=== PATIENT | male | born 1955 | race Caucasian/White ===

== ENCOUNTER 2019-01-06 18:02 | Inpatient (IN) | payer BC, MEDICAID ==
[~2019-01-06] VITALS: Ht 172.7 cm; Wt 52.9 kg
[~2019-01-06 18:02] MED LIST: AMLODIPINE; BUSPAR; CLOP75TA PO; FAMO20TA7 PO; OMEPRAZOLE; OMNIPAQUE 350 MG/ML, 150 ML BOTTLE ONE; STATIN
[2019-01-06] MEDS ORDERED: SODIUM CHLORIDE FLUSH 10ML SYR IVF ONE (18:30)
[2019-01-06] MEDS ORDERED: PLEASE ENTER HEIGHT AND WEIGHT MC SCH (18:30)
--- NOTE | 2019-01-06 19:01 | NUR ---
Assumed care of patient. Seen at [facility]. C/O LLE pain x 5 days. Hx bilat femoral stents placed two years ago. Ran out of Plavix last week. LLE cool to the touch and absent pulse. US from [place] showed severe occulsion of LLE. Patient drinks 1/2-1 pint of liquor per day. Placed on NIBP, pulse ox and residential monitor. Tachycardic. Family at bedside. Will continue to monitor.
[2019-01-06 19:06] LABS: BASOPHILS # (AUTO) 0.04 x10^3/uL (0-0.1); BASOPHILS % (AUTO) 0 % (0-1); EOSINOPHILS % (AUTO) 0 % (1-7); LYMPHOCYTES # (AUTO) 2.26 x10^3/uL (1-3.4); LYMPHOCYTES % (AUTO) 13 % (22-44); MD NO; MEAN CORPUSCULAR HEMOGLOBIN 37.6 pg (27.5-34.5); MEAN CORPUSCULAR HGB CONC 34.4 g/dL (33.2-36.2); MEAN CORPUSCULAR VOLUME 109.4 fL (81-97); MEAN PLATELET VOLUME 9.3 fL (7.4-10.4); MONOCYTES # (AUTO) 0.71 x10^3/uL (0.2-0.8); MONOCYTES % (AUTO) 4 % (2-9); NEUTROPHILS # (AUTO) 13.85 x10^3/uL (1.8-6.8); NEUTROPHILS % (AUTO) 82 % (42-75); PLATELET COUNT 173 x10^3/uL (130-400); RED BLOOD COUNT 4.22 x10^6/uL (4.38-5.82); RED CELL DISTRIBUTION WIDTH 16.3 % (9.4-14.8)
[2019-01-06 19:20] LABS: ALBUMIN 3.5 g/dL (3.4-5.0); ANION GAP 7 mmol/L (5-15); CALCIUM 9.9 mg/dL (8.5-10.1); CHLORIDE 97 mmol/L (98-107)
[2019-01-06] MEDS ORDERED: ATOR40TA78 PO (19:32)
[2019-01-06] MEDS ORDERED: RANI150T4 PO (19:32)
[2019-01-06] MEDS ORDERED: AMLO-150 PO (19:32)
[2019-01-06] MEDS ORDERED: PANT40TA5 PO (19:32)
--- NOTE | 2019-01-06 19:52 | NUR ---
Resting in [facility]. Provided with blankets.
[2019-01-06] MEDS ORDERED: HEPARIN 5,000 UNITS/ML, 1ML IV ONE (20:00)
[2019-01-06 20:15] LABS: INTERNATIONAL NORMALIZED RATIO 0.96 (0.93-1.1); PROTHROMBIN TIME 10.1 Seconds (9.6-11.5)
[2019-01-06] MEDS ORDERED: HEPARIN 5,000 UNITS/ML, 1ML ONE (20:16)
[2019-01-06] MEDS ORDERED: HEPARIN 25,000 UNITS/500ML PMX 500 ML ONE (20:16)
[2019-01-06] MEDS: HEPARIN 25,000 UNITS/500ML PMX 500 ML IV PRN (20:24)
--- NOTE | 2019-01-06 20:27 | NUR ---
Heparin hung. Remains tachycardic. NAD.
[2019-01-06] MEDS ORDERED: ONDANSETRON 2MG/ML, 2ML IVPush PRN (21:00)
[2019-01-06] MEDS ORDERED: MORPHINE SULFATE 4 MG/ML, 1ML IVPush PRN (21:00)
--- NOTE | 2019-01-06 21:40 | NUR ---
Report to ANDREWS Sandhu.
[2019-01-06] MEDS: SODIUM CHLORIDE 0.9% 1,000 ML IV SCH (21:41)
[2019-01-06] MEDS ORDERED: LORazepam 1MG TABLET PO PRN (22:00)
[2019-01-06 22:11] VITALS: BP 154/101
[2019-01-06] MEDS: POTASSIUM CHLORIDE 20 MEQ, MAGNESIUM SULFATE 1 GM, MVI ADULT 10 ML, THIAMINE 200 MG, FO... IV SCH (23:02)
[2019-01-06 23:42] LABS: FOLATE LEVEL 2.1 ng/mL (3.1-17.5)
[2019-01-07 02:53] VITALS: BP 127/84
[2019-01-07 03:19] LABS: MEAN CORPUSCULAR HEMOGLOBIN 37.6 pg (27.5-34.5); MEAN CORPUSCULAR HGB CONC 34.7 g/dL (33.2-36.2); MEAN CORPUSCULAR VOLUME 108.4 fL (81-97); MEAN PLATELET VOLUME 9.9 fL (7.4-10.4); PLATELET COUNT 159 x10^3/uL (130-400); RED BLOOD COUNT 3.93 x10^6/uL (4.38-5.82); RED CELL DISTRIBUTION WIDTH 16.5 % (9.4-14.8)
[2019-01-07 03:30] LABS: ALBUMIN 3.1 g/dL (3.4-5.0); ANION GAP 9 mmol/L (5-15); CALCIUM 9.1 mg/dL (8.5-10.1); CHLORIDE 99 mmol/L (98-107)
[2019-01-07 03:33] LABS: ALANINE AMINOTRANSFERASE 35 U/L (12-78); ALKALINE PHOSPHATASE 96 U/L (45-117); BILIRUBIN,TOTAL 1.5 mg/dL (0.2-1.0); CREATININE 0.57 mg/dL (0.7-1.3); TOTAL PROTEIN 6.7 g/dL (6.4-8.2)
[2019-01-07 03:43] LABS: BASOPHILS # (AUTO) 0.04 x10^3/uL (0-0.1); BASOPHILS % (AUTO) 0 % (0-1); EOSINOPHILS # (AUTO) 0.01 x10^3/uL (0-0.4); EOSINOPHILS % (AUTO) 0 % (1-7); LYMPHOCYTES # (AUTO) 1.94 x10^3/uL (1-3.4); LYMPHOCYTES % (AUTO) 12 % (22-44); MD SCAN; MONOCYTES # (AUTO) 1.15 x10^3/uL (0.2-0.8); MONOCYTES % (AUTO) 7 % (2-9); NEUTROPHILS # (AUTO) 13.65 x10^3/uL (1.8-6.8); NEUTROPHILS % (AUTO) 81 % (42-75)
[2019-01-07] MEDS: HEPARIN 5,000 UNITS/ML, 1ML IV PRN ×3 (03:47→18:48)
[2019-01-07] MEDS: METOPROLOL TARTRATE 25 MG TABLET PO SCH ×2 (05:18→18:59)
[2019-01-07 07:20] VITALS: BP 110/70
[2019-01-07] MEDS: CLOPIDOGREL 75 MG TABLET PO SCH (11:07)
[2019-01-07] MEDS: AMLODIPINE 5 MG TABLET PO SCH (11:07)
[2019-01-07] MEDS: PANTOPROZOLE 40MG TABLET PO SCH (11:07)
[2019-01-07] MEDS: SODIUM CHLORIDE 0.9% 1,000 ML IV SCH (11:08)
[2019-01-07] MEDS: NICOTINE 21 MG/24 HR PATCH.TD24 TD SCH (12:21)
[2019-01-07 13:02] LABS: MICROSCOPIC INDICATED
[2019-01-07 13:03] LABS: CULTURE INDICATED? YES
[2019-01-07] MEDS ORDERED: CEFTRIAXONE PMX 1GM/50ML 50 ML IV SCH (13:30)
[2019-01-07] MEDS ORDERED: ACETAMINOPHEN 325 MG TABLET PO PRN (13:30)
[2019-01-07 14:03] VITALS: BP 124/79
[2019-01-07] MEDS: CEFTRIAXONE PMX 1GM/50ML 50 ML IV SCH ×2 (18:48→19:21)
[2019-01-07 20:40] VITALS: BP 105/69
[2019-01-07] MEDS ORDERED: ATORVASTATIN 40 MG TABLET PO SCH (21:00)
[2019-01-08] MEDS: SODIUM CHLORIDE 0.9% 1,000 ML IV SCH ×2 (00:21→13:53)
[2019-01-08] MEDS: POTASSIUM CHLORIDE 20 MEQ, MAGNESIUM SULFATE 1 GM, MVI ADULT 10 ML, THIAMINE 200 MG, FO... IV SCH (00:35)
[2019-01-08] MEDS: HEPARIN 25,000 UNITS/500ML PMX 500 ML IV PRN ×2 (01:04→01:36)
[2019-01-08] MEDS: HEPARIN 5,000 UNITS/ML, 1ML IV PRN ×2 (01:36→06:21)
[2019-01-08 02:27] VITALS: BP 102/68
[2019-01-08 05:15] LABS: ALANINE AMINOTRANSFERASE 30 U/L (12-78); ALBUMIN 2.6 g/dL (3.4-5.0); ANION GAP 7 mmol/L (5-15); CALCIUM 8.5 mg/dL (8.5-10.1); CHLORIDE 102 mmol/L (98-107); CREATININE 0.54 mg/dL (0.7-1.3)
[2019-01-08 05:17] LABS: ALKALINE PHOSPHATASE 87 U/L (45-117); BASOPHILS # (AUTO) 0.01 x10^3/uL (0-0.1); BASOPHILS % (AUTO) 0 % (0-1); BILIRUBIN,TOTAL 0.6 mg/dL (0.2-1.0); EOSINOPHILS # (AUTO) 0.04 x10^3/uL (0-0.4); EOSINOPHILS % (AUTO) 0 % (1-7); LYMPHOCYTES # (AUTO) 3.03 x10^3/uL (1-3.4); LYMPHOCYTES % (AUTO) 18 % (22-44); MD NO; MEAN CORPUSCULAR HEMOGLOBIN 37.2 pg (27.5-34.5); MEAN CORPUSCULAR VOLUME 109.3 fL (81-97); MEAN PLATELET VOLUME 9.6 fL (7.4-10.4); MONOCYTES # (AUTO) 1.29 x10^3/uL (0.2-0.8); MONOCYTES % (AUTO) 8 % (2-9); NEUTROPHILS % (AUTO) 75 % (42-75); PLATELET COUNT 166 x10^3/uL (130-400); RED BLOOD COUNT 3.64 x10^6/uL (4.38-5.82); RED CELL DISTRIBUTION WIDTH 16.1 % (9.4-14.8); TOTAL PROTEIN 6.1 g/dL (6.4-8.2)
[2019-01-08] MEDS: METOPROLOL TARTRATE 25 MG TABLET PO SCH ×2 (05:18→17:58)
[2019-01-08] MEDS ORDERED: BUPIVACAINE/PF 0.5% ONE (07:32)
[2019-01-08] MEDS ORDERED: THROMBIN 20,000 UNIT VIAL TP ONE (07:33)
[2019-01-08] MEDS ORDERED: PAPAVERINE 30 MG/ML, 2ML ONE (07:33)
[2019-01-08] MEDS ORDERED: PROTAMINE SULFATE 10 MG/ML, 5ML ONE (07:33)
[2019-01-08] MEDS ORDERED: BUPIVACAINE/PF-EPI 0.5% 1:200K ONE (07:33)
[2019-01-08] MEDS ORDERED: HEPARIN 1,000 UNITS/ML, 10ML ONE ×2 (07:34→09:34)
[2019-01-08] MEDS ORDERED: BACITRACIN 50,000 UNIT ONE (07:34)
[2019-01-08] MEDS ORDERED: FENTANYL PF 250 MCG/5ML ONE (07:58)
[2019-01-08] MEDS ORDERED: SUCCINYLCHOLINE 20 MG/ML, 10ML ONE (08:21)
[2019-01-08] MEDS ORDERED: ROCURONIUM 10MG/ML,5ML ONE (08:21)
[2019-01-08] MEDS ORDERED: PROPOFOL 10 MG/ML, 20ML ONE (08:21)
[2019-01-08] MEDS ORDERED: DEXAMETHASONE 4 MG/ML, 1ML ONE (08:21)
[2019-01-08] MEDS ORDERED: PHENYLEPHRINE 10 MG/ML ONE (08:21)
[2019-01-08] MEDS ORDERED: ONDANSETRON 2MG/ML, 2ML ONE (08:21)
[2019-01-08] MEDS ORDERED: LABETALOL 5 MG/ML SYRINGE IV PRN (08:30)
[2019-01-08] MEDS ORDERED: PROMETHAZINE 12.5 MG SUPP PR PRN (08:30)
[2019-01-08] MEDS ORDERED: hydrALAzine 20 MG/ML, 1ML IV PRN (08:30)
[2019-01-08] MEDS ORDERED: HYDROmorphone 2 MG/ML, 1ML IVPush PRN (08:30)
[2019-01-08] MEDS ORDERED: MORPHINE SULFATE 4 MG/ML, 1ML IVPush PRN (08:30)
[2019-01-08] MEDS ORDERED: ONDANSETRON 2MG/ML, 2ML IV PRN (08:30)
[2019-01-08] MEDS ORDERED: ALBUTEROL SULFATE 2.5 MG/3 ML NPPB PRN (08:30)
[2019-01-08] MEDS ORDERED: HALOPERIDOL 5 MG/ML IV PRN (08:30)
[2019-01-08] MEDS ORDERED: MIDAZOLAM 1 MG/ML, 5ML IV PRN (08:30)
[2019-01-08] MEDS ORDERED: ONDANSETRON ODT 8 MG PO PRN (08:30)
[2019-01-08] MEDS ORDERED: EPHEDRINE 50 MG/ML, 1ML IVPush PRN (08:30)
[2019-01-08] MEDS ORDERED: OXYcodone 5 MG/5 ML ORAL.SOL UDC PO PRN (08:30)
[2019-01-08] MEDS ORDERED: MEPERIDINE/PF 25MG/0.5ML IVPush PRN (08:30)
[2019-01-08] MEDS ORDERED: DIAZEPAM 5 MG/ML, 2ML IVPush PRN (08:30)
[2019-01-08] MEDS ORDERED: PROMETHAZINE 25 MG/ML, 1ML IV PRN (08:30)
[2019-01-08] MEDS: CLOPIDOGREL 75 MG TABLET PO SCH (09:00)
[2019-01-08] MEDS: PANTOPROZOLE 40MG TABLET PO SCH (09:00)
[2019-01-08] MEDS: AMLODIPINE 5 MG TABLET PO SCH (09:00)
[2019-01-08] MEDS ORDERED: OXYcodone 5 MG/5 ML ORAL.SOL UDC ONE (11:25)
[2019-01-08] MEDS ORDERED: FENTANYL PF 100 MCG/2ML ONE (11:25)
[2019-01-08] MEDS: FENTANYL PF 100 MCG/2ML IV PRN ×2 (11:29→11:52)
[2019-01-08 13:30] VITALS: BP 104/68
[2019-01-08] MEDS: NICOTINE 21 MG/24 HR PATCH.TD24 TD SCH (13:53)
[2019-01-08 20:22] VITALS: BP 107/73
[2019-01-08] MEDS ORDERED: ATORVASTATIN 80 MG TABLET PO SCH (21:00)
[2019-01-08] MEDS: CEFTRIAXONE PMX 1GM/50ML 50 ML IV SCH (23:46)
[2019-01-09] MEDS: POTASSIUM CHLORIDE 20 MEQ, MAGNESIUM SULFATE 1 GM, MVI ADULT 10 ML, THIAMINE 200 MG, FO... IV SCH (00:31)
[2019-01-09 02:22] VITALS: BP 102/66
[2019-01-09] MEDS: SODIUM CHLORIDE 0.9% 1,000 ML IV SCH (02:41)
[2019-01-09 05:56] LABS: MEAN CORPUSCULAR HEMOGLOBIN 37.5 pg (27.5-34.5); MEAN CORPUSCULAR HGB CONC 34.3 g/dL (33.2-36.2); MEAN CORPUSCULAR VOLUME 109.2 fL (81-97); MEAN PLATELET VOLUME 9.5 fL (7.4-10.4); PLATELET COUNT 199 x10^3/uL (130-400); RED BLOOD COUNT 3.02 x10^6/uL (4.38-5.82); RED CELL DISTRIBUTION WIDTH 16.3 % (9.4-14.8)
[2019-01-09] MEDS: METOPROLOL TARTRATE 25 MG TABLET PO SCH (06:05)
[2019-01-09 06:10] LABS: ANION GAP 7 mmol/L (5-15); CHLORIDE 106 mmol/L (98-107)
[2019-01-09 06:12] LABS: CALCIUM 8.3 mg/dL (8.5-10.1)
[2019-01-09 06:22] LABS: BASOPHILS # (AUTO) 0.05 x10^3/uL (0-0.1); BASOPHILS % (AUTO) 0 % (0-1); EOSINOPHILS # (AUTO) 0.03 x10^3/uL (0-0.4); EOSINOPHILS % (AUTO) 0 % (1-7); LYMPHOCYTES # (AUTO) 1.88 x10^3/uL (1-3.4); LYMPHOCYTES % (AUTO) 11 % (22-44); MD SCAN; MONOCYTES # (AUTO) 1.51 x10^3/uL (0.2-0.8); MONOCYTES % (AUTO) 9 % (2-9); NEUTROPHILS # (AUTO) 13.73 x10^3/uL (1.8-6.8); NEUTROPHILS % (AUTO) 80 % (42-75)
[2019-01-09] MEDS ORDERED: HEPARIN 5,000 UNITS/ML, 1ML SQ SCH (07:00)
[2019-01-09] MEDS: CLOPIDOGREL 75 MG TABLET PO SCH (08:01)
[2019-01-09] MEDS: PANTOPROZOLE 40MG TABLET PO SCH (08:02)
[2019-01-09] MEDS: AMLODIPINE 5 MG TABLET PO SCH (08:02)
[2019-01-09] MEDS: NICOTINE 21 MG/24 HR PATCH.TD24 TD SCH (08:03)
[2019-01-09 08:18] VITALS: BP 106/70
[2019-01-09] MEDS ORDERED: FOLI-17 PO (11:23)
[2019-01-09] MEDS ORDERED: ASPI81TA45 PO (11:23)
[2019-01-09] MEDS ORDERED: ATOR-2 PO (11:23)
[2019-01-09] MEDS ORDERED: MULT1TAB60 PO (11:23)
[2019-01-09] MEDS ORDERED: THIA100T67 PO (11:23)
[2019-01-09] MEDS ORDERED: METO25TA35 PO (11:23)
[2019-01-09] MEDS ORDERED: CEFD300C37 PO (12:59)
[2019-01-10] MEDS ORDERED: ASPIRIN 81 MG TABLET EC PO SCH (06:00)
== END 2019-01-09 15:00 | disposition home or self-care (01) | DRG 270 ==
LOC: ED 20:14 → EDIP 20:44 → 4EST 22:01
PROVIDERS: ADMIT Family Medicine; ATTEND Family Medicine
PROC: 04CJ0ZZ Extirpation of Matter from Left External Iliac Artery, Open Approach (ICD-10-PCS; 2019-01-08)
PROC: 047D3DZ Dilation of Left Common Iliac Artery with Intraluminal Device, Percutaneous Approach (ICD-10-PCS; 2019-01-08)
PROC: 047J3DZ Dilation of Left External Iliac Artery with Intraluminal Device, Percutaneous Approach (ICD-10-PCS; 2019-01-08)
PROC: 04CL0ZZ Extirpation of Matter from Left Femoral Artery, Open Approach (ICD-10-PCS; 2019-01-08)
PROC: B4101ZZ Fluoroscopy of Abdominal Aorta using Low Osmolar Contrast (ICD-10-PCS; 2019-01-08)
PROC: 04CD0ZZ Extirpation of Matter from Left Common Iliac Artery, Open Approach (ICD-10-PCS; principal; 2019-01-08 08:00)
DX: T82.856A Stenosis of peripheral vascular stent, initial encounter (principal); A41.9 Sepsis, unspecified organism; E87.1 Hypo-osmolality and hyponatremia; I74.5 Embolism and thrombosis of iliac artery; N39.0 Urinary tract infection, site not specified; Y83.8 Other surgical procedures as the cause of abnormal reaction of the patient, or of later complication, without mention of misadventure at the time of the procedure; Y92.89 Other specified places as the place of occurrence of the external cause; D53.9 Nutritional anemia, unspecified; E53.8 Deficiency of other specified B group vitamins; E87.6 Hypokalemia; F10.10 Alcohol abuse, uncomplicated; Y90.9 Presence of alcohol in blood, level not specified; F17.210 Nicotine dependence, cigarettes, uncomplicated; I10 Essential (primary) hypertension; I99.8 Other disorder of circulatory system; K21.9 Gastro-esophageal reflux disease without esophagitis; Z79.02 Long term (current) use of antithrombotics/antiplatelets; Z79.82 Long term (current) use of aspirin; Z88.2 Allergy status to sulfonamides
CPT/HCPCS: 36415; 37237; 75635; 80048; 80053; 81001; 82040; 82607; 82746; 83605; 83735; 85025; 85520; 85610; 85730; 86850; 86900; 86923; 87040; 87086; 93922; 93926; 99291; C1725; G0378; J0696; J1100; J1644; J2405; J2704; J2720; J3010; J3411; J3475; J3480; C1753; C1757; C1769; C1874; J0330; J2370; J2440; J7030